=== PATIENT | female | born 1990 | race Caucasian/White ===

== ENCOUNTER 2018-09-18 11:25 | Emergency (ER) | payer BC, OTHER ==
[~2018-09-18] VITALS: Ht 167.6 cm; Wt 88.5 kg
[2018-09-18] MEDS ORDERED: LIDOCAINE 2% 20 ML (XYLOCAINE) VIAL INJ ONE (11:45)
[2018-09-18] MEDS ORDERED: METF-397 PO (11:49)
[2018-09-18] MEDS ORDERED: DOXY100T19 PO (11:50)
[2018-09-18] MEDS ORDERED: HYDR-4226 PO (11:50)
--- NOTE | 2018-09-18 11:51 | ED Integumentary General ---
General Chief Complaint: Skin/Wound Problems Stated Complaint: ABCESS BEHIND LEFT EAR Source: patient Exam Limitations: no limitations History of Present Illness Date Seen by Provider: Sep 18, 2018 Time Seen by Provider: 11:47 Initial Comments to ER with an abscess behind the left ear getting larger for the past 2 weeks. No fevers or chills. She's had this recur in the same location this will be the third time. Timing/Duration: getting worse Severity: moderate Location: face Possible Cause: no cause identified Associated Symptoms: denies symptoms Allergies and Home Medications Allergies Coded Allergies: Penicillins (Verified Allergy, Mild, 09/18/18) azithromycin (Verified Allergy, Mild, 09/18/18) clindamycin (Verified Allergy, Unknown, 09/18/18) Home Medications Doxycycline Monohydrate 100 Mg Tablet, 100 MG PO BID Prescribed by: ROJELIO RICHTER on 09/18/18 1150 Hydrocodone/Acetaminophen 1 Each Tablet, 1 EACH PO Q6H PRN for PAIN-MODERATE Prescribed by: ROJELIO RICHTER on 09/18/18 1150 Patient Home Medication List Home Medication List Reviewed: Yes Review of Systems Review of Systems Constitutional: see HPI EENTM: see HPI Respiratory: no symptoms reported Cardiovascular: no symptoms reported Genitourinary: no symptoms reported Musculoskeletal: no symptoms reported Skin: no symptoms reported Psychiatric/Neurological: No Symptoms Reported Past [id number]-[id number] Hx Patient Social History Alcohol Use: Occasionally Uses Recreational Drug Use: Yes Smoking Status: Current Everyday Smoker Recent Foreign Travel: No Contact w/Someone Who Travel: No Physical Exam Vital Signs Vital Signs - First Documented 09/18/18 11:32 Temp 98.0 Pulse 88 Resp 18 B/P (MAP) 116/79 (91) Pulse Ox 98 Capillary Refill : General Appearance: WD/WN, no apparent distress HEENT: PERRL/EOMI, normal ENT inspection, other (2 cm fluctuant abscess posterior to the left ear but anterior to the mastoid process. Mastoid process itself is not erythematous or tender.) Neck: non-tender, full range of motion Respiratory: no respiratory distress, no accessory muscle use Neurologic/Psychiatric: alert, normal mood/affect, oriented x 3 Skin: normal color, warm/dry Skin Problem Character: abscess, erythema Procedures/Interventions I&D : Blade Size: 11 Progress Abscess behind the left ear was anesthetized with 1% lidocaine without epinephrine totaling 1 mL. Incision was made with 11 blade scalpel. Moderate amount of purulent material was expressed. Culture collected and sent to lab. Cavity irrigated with Betadine/saline solution. Covered with gauze. Progress/Results/Core Measures Results/Orders My Orders Orders - ROJELIO RICHTER APRN Wound Culture (09/18/18 11:43) Lidocaine 2% Injection 20 Ml (Xylocaine (09/18/18 11:45) Lidocaine 1% Inj 20 Ml (Xylocaine 1% Inj (09/18/18 11:52) Vital Signs/I&O 09/18/18 11:32 Temp 98.0 Pulse 88 Resp 18 B/P (MAP) 116/79 (91) Pulse Ox 98 Departure Impression Primary Impression: Abscess Disposition: 01 HOME, SELF-CARE Condition: Stable Departure-Patient Inst. Decision time for Depature: 11:49 Referrals: NO,LOCAL PHYSICIAN (PCP/Family) Primary Care Physician Patient Instructions: Skin Abscess Add. Discharge Instructions: 1. Change the dressing as needed until he quits bruising which may persist for 2 -3 days. Take antibiotics as directed. Follow-up with your doctor next week All discharge instructions reviewed with patient and/or family. Voiced understanding. Scripts Hydrocodone/Acetaminophen ([place] 5-325 Tablet) 1 Each Tablet 1 EACH PO Q6H PRN for PAIN-MODERATE MDD 10, #5 TAB Prov: ROJELIO RICHTER APRN 09/18/18 Doxycycline Monohydrate (Doxycycline Monohydrate) 100 Mg Tablet 100 MG PO BID, #14 TAB Prov: ROJELIO RICHTER APRN 09/18/18 Work/School Note: Work Release Form Date Seen in the Emergency Department: Sep 18, 2018 Return to Work: Sep 20, 2018 Images Head/Face 1 - Mild, Swelling, Tenderness ROJELIO RICHTER APRN Sep 18, 2018 11:51
[2018-09-18] MEDS ORDERED: LIDOCAINE 1% INJ 20 ML 20 ML VIAL ONE (11:52)
[2018-09-18 12:04] VITALS: BP 116/79
== END 2018-09-18 12:04 | disposition home or self-care (01) ==
LOC: EDUNIT# 11:25 → ER 11:29
DX: H60.02 Abscess of left external ear (principal); F17.200 Nicotine dependence, unspecified, uncomplicated; Z88.2 Allergy status to sulfonamides; Z88.1 Allergy status to other antibiotic agents
CPT/HCPCS: 10160; 87070; 87077; 87205